=== PATIENT | male | born 1985 | race Caucasian/White ===

== ENCOUNTER 2017-09-17 05:59 | Day surgery (SDC) | payer OTHER ==
[2017-09-17] MEDS ORDERED: ROCURONIUM 50 MG INJ ×2 (07:00→08:38)
[2017-09-17] MEDS ORDERED: CEFAZOLIN 1 GM INJ ×2 (07:00→08:38)
[2017-09-17] MEDS ORDERED: MIDAZOLAM 1 MG/ML 2 ML INJ (07:18)
[2017-09-17] MEDS ORDERED: FENTAnyl 50 MCG/ML VIAL (07:18)
[2017-09-17] MEDS: BACITRACIN/POLYMYXIN 28.35 GM OINT TOP (07:31)
[2017-09-17] MEDS: POLYMYXIN/BACITRACIN 1L IRRIG IRR (07:31)
[2017-09-17] MEDS ORDERED: morphine 2 MG INJ IV (08:00)
[2017-09-17] MEDS ORDERED: PROPOFOL 20 ML (08:38)
[2017-09-17] MEDS ORDERED: LIDOCAINE 100 MG SYRINGE (08:38)
[2017-09-17] MEDS ORDERED: SUCCINYLCHOLINE CHLORIDE 100 MG/5 ML SYG IV (08:38)
[2017-09-17] MEDS ORDERED: SUGAMMADEX SODIUM 200 MG/2 ML VIAL IV (08:38)
[2017-09-17] MEDS ORDERED: THROMBIN(HUM PLAS)/FIBRINOG/CA 5 ML VIAL TOP (08:51)
[2017-09-17] MEDS ORDERED: HYDROmorphONE 1 MG/5 ML IV SYRINGE IV ×3 (09:00)
[2017-09-17] MEDS ORDERED: METOCLOPRAMIDE 10 MG INJ IV (09:00)
[2017-09-17] MEDS ORDERED: MEPERIDINE 25 MG INJ IV (09:00)
[2017-09-17] MEDS ORDERED: morphine (1 MG/ML) 10ML SYRINGE IV (09:00)
[2017-09-17] MEDS ORDERED: FENTAnyl 50 MCG/ML VIAL IV ×2 (09:00)
[2017-09-17] MEDS ORDERED: DIPHENHYDRAMINE 50 MG INJ IV (09:00)
[2017-09-17] MEDS ORDERED: ROPIVACAINE 0.5 % 30 ML VIAL (12:07)
[2017-09-17] MEDS ORDERED: POLYMYXIN/BACITRACIN 1L IRRIG (12:07)
[2017-09-17] MEDS: ONDANSETRON 4 MG INJ IV (13:23)
[2017-09-17] MEDS: FENTAnyl 50 MCG/ML VIAL IV (13:23)
[2017-09-17] MEDS: ROPIVACAINE 0.5 % 30 ML VIAL (14:13)
== END 2017-09-17 14:20 | disposition home or self-care (01) ==
LOC: SDS 05:59
DX: M93.272 Osteochondritis dissecans, left ankle and joints of left foot (principal); M25.872 Other specified joint disorders, left ankle and foot; M65.872 Other synovitis and tenosynovitis, left ankle and foot; M24.072 Loose body in left ankle
CPT/HCPCS: 29891; 73610; 82306